=== PATIENT | female | born 1985 | race Caucasian/White ===

== ENCOUNTER 2021-03-01 18:51 | Emergency (ER) | payer OTHER ==
[2021-03-01] MEDS ORDERED: diphenhydrAMINE 25 MG CAP ONE (19:29)
[2021-03-01] MEDS ORDERED: Metoclopramide HCl 10 MG/2 ML VIAL ONE (19:29)
[2021-03-01] MEDS ORDERED: Ketorolac Tromethamine 30 MG/ML VIAL ONE (19:29)
== END 2021-03-01 20:50 | disposition home or self-care (01) ==
LOC: ERS 18:51
DX: R51.9 Headache, unspecified (principal); I10 Essential (primary) hypertension; Z79.899 Other long term (current) drug therapy
CPT/HCPCS: 96365; 96375; J1885; J2765

== ENCOUNTER 2021-11-03 09:13 | Outpatient (CLI) | payer OTHER | END 2021-11-03 09:14 | disposition home or self-care (01) | LOC: BICULT 09:13 | PROVIDERS: ATTEND Family Medicine | DX: N91.2 Amenorrhea, unspecified (principal); D25.1 Intramural leiomyoma of uterus | CPT/HCPCS: 76856 ==

== ENCOUNTER 2021-12-29 21:24 | Observation (INO) | payer OTHER ==
[2021-12-30 00:09] LABS: #Basophils 0.1 thou/uL (0.0-0.2); #Eosinphils 0.3 thou/uL (0.0-0.7); #Monocytes 0.9 thou/uL (0.11-0.59); #Neutrophils 6.4 thou/uL (1.40-6.50); %Basophils 0.7 % (0.0-1.0); %Eosinophils 2.6 % (0.0-10.0); %Lymphocytes 34.1 % (21.0-51.0); %Monocytes 7.9 % (0.0-10.0); %Neutrophils 54.7 % (42.0-75.0); Hemoglobin 13.8 g/dL (12.0-16.0); Mean Corpuscular HGB CONC 33.1 g/dL (32.0-36.0); Mean Corpuscular Hemoglobin 29.4 pg (27.0-31.0); Mean Corpuscular Volume 88.7 fL (78.0-98.0); Mean Platelet Volume 7.9 fL (7.4-10.4); Platelet Count 360 thou/uL (130-400); RBC Distribution Width 12.5 % (11.5-14.5); Red Blood Cell (RBC) Count 4.69 mill/uL (4.20-5.40); White Blood Cell (WBC) Count 11.7 thou/uL (4.8-10.8)
[2021-12-30 00:31] LABS: ALT (SGPT) 15 U/L (8-55); AST (SGOT) 14 U/L (5-34); Albumin 4.1 g/dL (3.5-5.0); Alkaline Phosphatase 77 U/L (40-110); Anion Gap 13 mmol/L (10-20); BUN (Urea Nitrogen) 17 mg/dL (7.0-18.7); Bilirubin, Total 0.4 mg/dL (0.2-1.2); Calc. Creatinine Clearance 0 mL/min (70-130); Calcium 9.2 mg/dL (7.8-10.44); Carbon Dioxide 23 mmol/L (22-29); Chloride 106 mmol/L (98-107); Estimated GFR 103; Globulin 3.4 g/dL (2.4-3.5); Glucose 103 mg/dL (70-105); Potassium 3.9 mmol/L (3.5-5.1); Protein, Total 7.5 g/dL (6.0-8.3); Sodium 138 mmol/L (136-145)
[2021-12-30] MEDS ORDERED: Ondansetron ODT 4 MG TAB SL PRN (05:00)
[2021-12-30] MEDS ORDERED: Ondansetron PF 4 MG/2 ML Vial IVP PRN (05:00)
[2021-12-30 05:03] VITALS: BMI 47.5
[2021-12-30] MEDS: Acetaminophen 325 MG TAB PO PRN ×2 (05:47→14:56)
[2021-12-30] MEDS ORDERED: Aspirin 81 mg Enteric Coated Tablet PO SCH (08:30)
[2021-12-30 09:58] LABS: Amphetamine Not Detected (NotDetected); Barbiturates Screen Not Detected (NotDetected); Benzodiazepine Screen Not Detected (NotDetected); Cocaine Metabolite Screen Not Detected (NotDetected); Methadone Not Detected (NotDetected); Methamphetamine Not Detected (NotDetected); Opiate Screen Not Detected (NotDetected); Oxycodone Screen Not Detected (NotDetected); Phencyclidine (PCP) Not Detected (NotDetected); THC/Cannabinoid Screen Not Detected (NotDetected); Tricyclic Screen Not Detected (NotDetected)
[2021-12-30] MEDS ORDERED: Albuterol 200 PUFF (6.7GM INHALER) INH PRN (11:36)
[2021-12-30] MEDS ORDERED: Albuterol Sulfate 2.5 mg/3 ml Neb NEB PRN (12:42)
[2021-12-30] MEDS ORDERED: Acetaminophen 325 MG TAB PO PRN (14:54)
[2021-12-30] MEDS: Mometasone 100 MCG/Formoterol 5 MCG 120 PUFF INHALER INH SCH (19:07)
[2021-12-30] MEDS: Gabapentin 300 MG CAP PO SCH (20:05)
[2021-12-30] MEDS ORDERED: Atorvastatin Calcium 40 MG TAB PO SCH (21:00)
[2021-12-30] MEDS ORDERED: Baclofen 10 MG TAB PO SCH (21:00)
[2021-12-31 06:05] LABS: Cardiac Risk 6.4 (Less than 4.5)
[2021-12-31] MEDS: Mometasone 100 MCG/Formoterol 5 MCG 120 PUFF INHALER INH SCH (07:20)
[2021-12-31] MEDS ORDERED: Aspirin 81 mg Enteric Coated Tablet PO SCH (09:00)
[2021-12-31] MEDS ORDERED: NIFEdipine XL 30 MG TAB PO SCH ×2 (09:26→09:45)
[2021-12-31] MEDS: Gabapentin 300 MG CAP PO SCH (09:55)
[2021-12-31 11:17] VITALS: BP 120/72; TEMP 98.1
[2022-01-01] MEDS ORDERED: NIFEdipine XL 30 MG TAB PO SCH (09:00)
== END 2021-12-31 16:10 ==
LOC: ERS 21:24 → EEVIPCON 12-30 04:00 → NEURO 12-30 04:00
PROVIDERS: ADMIT Internal Medicine; ATTEND Internal Medicine
DX: R29.810 Facial weakness (principal); R20.0 Anesthesia of skin; R51.9 Headache, unspecified; R55 Syncope and collapse; M47.812 Spondylosis without myelopathy or radiculopathy, cervical region; I10 Essential (primary) hypertension; F15.11 Other stimulant abuse, in remission; F12.11 Cannabis abuse, in remission; J45.30 Mild persistent asthma, uncomplicated; E78.00 Pure hypercholesterolemia, unspecified; I37.1 Nonrheumatic pulmonary valve insufficiency; I95.9 Hypotension, unspecified; Z79.899 Other long term (current) drug therapy; Z88.8 Allergy status to other drugs, medicaments and biological substances
CPT/HCPCS: 36415; 36416; 70450; 70551; 71045; 72125; 80053; 80061; 80306; 85025; 93005; 93306; 93880; 94640; J7611; U0003; U0005